=== PATIENT | male | born 1965 | race Caucasian/White ===

== ENCOUNTER → 2020-02-26 09:19 | Outpatient (CLI) | payer OTHER, SELFPAY ==
--- NOTE | ~2020-02-26 | US_ITS ---
EXAMINATION: US right upper quadrant DATE: 02/26/2020 10:17 INDICATION: Right upper quadrant pain TECHNIQUE: Multiple grayscale and Doppler ultrasound images of the abdomen were obtained. COMPARISON: 05/28/2010 FINDINGS: The head and body of the pancreas are normal. The pancreatic tail is obscured by bowel gas. The liver demonstrates increased echogenicity, heterogenous echotexture, and decreased through trans mission. No surface nodularity. Normal hepatopetal flow in the main portal vein. The gallbladder is n ormal with no abnormal wall thickening, pericholecystic fluid or stones. The normal common bile duct measures 3 mm. There was no sonographic Jordan sign. IMPRESSION: 1. Diffuse hepatic steatosis. Reviewed, dictated and finalized at location A. OR INSTALLER
== END ==
PROVIDERS: PCP Student in an Organized Health Care Education/Training Program; Visit Provider Student in an Organized Health Care Education/Training Program
DX: R10.11 Right upper quadrant pain (principal); K76.0 Fatty (change of) liver, not elsewhere classified
CPT/HCPCS: 76705

== ENCOUNTER → 2021-03-01 02:30 | Outpatient (CLI) | payer OTHER, SELFPAY ==
[2021-03-01 20:09] LABS: SARS-CoV-2 RNA PCR Negative
== END ==
PROVIDERS: PCP Student in an Organized Health Care Education/Training Program; Visit Provider Internal Medicine Gastroenterology
DX: Z01.812 Encounter for preprocedural laboratory examination (principal); Z20.822 Contact with and (suspected) exposure to COVID-19
CPT/HCPCS: C9803; U0003; U0005

== ENCOUNTER 2021-03-04 00:10 | Day surgery (SDC) | payer OTHER, SELFPAY ==
[2021-02-14 14:14] VITALS: BMI 33.9
--- NOTE | 2021-03-03 10:55 | WPDANESEPPF ---
Anes - Initial Pre Proc Eval Procedure: Operation Date: 03/04/21 07:30 Proposed Procedures p Screening Colonoscopy - Oli Dorsey MD Date/Time: 03/03/21 10:55 Surgeon: Oli Dorsey MD Pre Op Diagnosis: neoplasm screening Patient Data Age: 55 Gender: M Height: 1.83 m Weight: 113.5 kg Allergies Allergy/AdvReac Type Severity Reaction Status Date / Time No Known Allergies Allergy Unknown Verified 03/04/21 06:17 Home Medications Medication Instructions Recorded Confirmed Type irbesartan 150 mg tablet 150 mg PO DAILY tablet 05/25/20 03/04/21 History zolpidem 5 mg PO USEASDIRECTD PRN 02/14/21 03/04/21 History Patient hx anesthesia problems: none Family hx anesthesia problems: none Results Review: All pre-operative results and documents have been reviewed as part of the pre-operative evaluation. [facility] Past Medical History Medical History (Updated 03/03/21 @ 10:56 by Josef Pugh DO) Encounter for screening colonoscopy HTN (hypertension) YAJAIRA (obstructive sleep apnea) Surgical History Surgical History History of eye surgery 03-06-2019, 07-21-2019 Family History Family History Other Diabetes mellitus Family history of arthritis Hypertension Social History Social History Smoking status: Former smoker Tobacco type: cigarettes Additional smoking assessment comments: smoked when 17 yo. Alcohol intake: current Drinks per week: 2 Substance use: never Substance use type: does not use Living arrangements: with family Spiritual care concerns: No Anes - Eval Final PreProcedure Day of Procedure 03/03/21 10:55 Patient weight: obese Heart: regular rate and rhythm Lungs: clear to auscultation and normal air movement Airway: Mallampati scale class II Neurological: alert and oriented Last oral intake: >/= 8 hours ASA classification: III Emergent: no Anesthetic plan: proceed Anesthesia type and monitoring: general GIVS and standard monitoring Results Review: All pre-operative results and documents have been reviewed as part of the pre-operative evaluation. Informed Consent: The patient's anesthetic plan and its attendant risks and benefits were discussed with the patient/family/POA. Questions were solicited and answers provided to the satisfaction of the patient/family/POA.
[2021-03-04 06:18] VITALS: BP 140/89; PULSE 61; RESP 17; TEMP 35.8; O2SAT 99; BMI 34.0
[2021-03-04] MEDS: LACTATED RINGERS 1,000 ML 150 ML IV CONT (06:27)
--- NOTE | 2021-03-04 07:22 | WPDGICN ---
Assessment and Plan Assessment and plan (1) Encounter for screening colonoscopy: Code(s): Z12.11 - Encounter for screening for malignant neoplasm of colon Status: Acute Assessment and Plan: Patient presents for screening colonoscopy. High-fiber diet is advised to bulk up his stools. Further recommendations may be given after endoscopy. GI Consult Note Consult date/time: 03/04/21 07:23 HPI: Betito Jaeger is a 55 year old male Presents for neoplasia screening colonoscopy. Patient previous colonoscopy was 11 or 12 years ago. Patient's current weight appetite bowel movements are normal. He denies abdominal pain. He did experience 1 episode of bright red blood per rectum 6 months ago. He denies any abdominal or rectal pain. His bowel habits tend to be normal and are occasionally loose. Family history is noncontributory. Review of Systems Review of Systems: All systems reviewed & are unremarkable except as noted in HPI and below PMFSH Past Medical History Medical History (Updated 03/03/21 @ 10:56 by Josef Pugh DO) Encounter for screening colonoscopy HTN (hypertension) YAJAIRA (obstructive sleep apnea) Surgical History Surgical History History of eye surgery 03-06-2019, 07-21-2019 Family History Family History Other Diabetes mellitus Family history of arthritis Hypertension Social History Social History Smoking status: Former smoker Tobacco type: cigarettes Additional smoking assessment comments: smoked when 17 yo. Alcohol intake: current Drinks per week: 2 Substance use: never Substance use type: does not use Living arrangements: with family Spiritual care concerns: No Meds Home Medications and Allergies Home Medications Medication Instructions Recorded Confirmed Type irbesartan 150 mg tablet 150 mg PO DAILY tablet 05/25/20 03/04/21 History zolpidem 5 mg PO USEASDIRECTD PRN 02/14/21 03/04/21 History Allergies Allergy/AdvReac Type Severity Reaction Status Date / Time No Known Allergies Allergy Unknown Verified 03/04/21 06:17 Vital Signs Vital Signs - 24 hr 03/04/21 06:18 Temperature 96.5 F L Pulse Rate 61 Respiratory Rate 17 Blood Pressure 140/89 Pulse Oximetry 99 Exam Narrative: Physical exam reveals patient to be alert. Vital signs stable. HEENT exam is unremarkable. Patient is anicteric. Lungs are clear to auscultation and percussion. Heart is without murmur or extra sounds. Abdominal exam bowel sounds are present soft nontender with no hepatosplenomegaly. Digital external rectal exam is normal.
[2021-03-04 07:45] VITALS: BP 128/93; PULSE 64; RESP 23; O2SAT 97
[2021-03-04 07:52] VITALS: BP 121/87; PULSE 61; RESP 22; O2SAT 98
[2021-03-04 07:54] VITALS: BP 112/71; PULSE 72; RESP 19; O2SAT 98
== END 2021-03-04 08:14 | disposition home or self-care (01) ==
PROVIDERS: PCP Student in an Organized Health Care Education/Training Program; Visit Provider Internal Medicine Gastroenterology
PROC: 0DJD8ZZ Inspection of Lower Intestinal Tract, Via Natural or Artificial Opening Endoscopic (ICD-10-PCS; CPT 45378; principal; 2021-03-04 07:30)
DX: Z12.11 Encounter for screening for malignant neoplasm of colon (principal); K64.8 Other hemorrhoids; I10 Essential (primary) hypertension; G47.33 Obstructive sleep apnea (adult) (pediatric); Z87.891 Personal history of nicotine dependence; E66.9 Obesity, unspecified; Z68.34 Body mass index [BMI] 34.0-34.9, adult
CPT/HCPCS: 45378; C9803; J2704; J7120; U0003; U0005

== ENCOUNTER → 2021-04-14 08:36 | Outpatient (CLI) | payer OTHER, SELFPAY ==
--- NOTE | ~2021-04-14 | MR_ITS ---
EXAMINATION: MR thoracic spine wo/w con EXAM DATE: 04/14/2021 09:44 INDICATION: Compression fracture of thoracic spine, abnormal xray . Left-sided mid back pain worse wh en lying down. Symptoms 9 months. TECHNIQUE: Multi-sequential, multiplanar MR images of the thoracic spine were obtained without contra st. Sagittal T1, T2, T2 fat saturation, axial T2 weighted images reviewed. Axial T1 weighted sequenc e. Patient was then injected with 20 mL Multihance intravenous contrast and reimaged. Postcontrast axial and sagittal T1-weighted fat saturation sequences were obtained. There are no prior studies for comparison. FINDINGS: There is mild to moderate mid and lower thoracic disc disease. Mild loss of the T10-L1 vert ebral body height anteriorly without acute edema. There is mild edema in the T7 and T8 vertebral bodi es which could be minimal acute or subacute compression fractures. There is mild to moderate thoracic facet arthropathy. The spinal cord signal intensity and intrinsic morphology is normal. The thoracic neural foramen and central canal are widely patent. Aside from the enhancing T7 and T8 vertebral bod ies, no other areas of abnormal enhancement. IMPRESSION: 1. Probable minimal acute or subacute compression fractures of T7 and T8. 2. Chronic appearing mild compression fractures T10-L1. 3. Mild to moderate thoracic spondylosis. Reviewed, dictated and finalized at location G. [place] [employer]
[2021-04-14 09:02] LABS: Estimated Glomerular Filt Rate > 60
== END ==
PROVIDERS: PCP Student in an Organized Health Care Education/Training Program; Visit Provider Physician Assistant
DX: M47.894 Other spondylosis, thoracic region (principal); S22.060A Wedge compression fracture of T7-T8 vertebra, initial encounter for closed fracture; S22.070A Wedge compression fracture of T9-T10 vertebra, initial encounter for closed fracture; S22.080A Wedge compression fracture of T11-T12 vertebra, initial encounter for closed fracture; S32.010A Wedge compression fracture of first lumbar vertebra, initial encounter for closed fracture; X58.XXXA Exposure to other specified factors, initial encounter
CPT/HCPCS: 72157; A9577